=== PATIENT | male | born 1975 | race Native Hawaiian/Other Pacific Islander ===

== ENCOUNTER 2023-07-20 14:04 | Emergency (ER) | payer BC ==
[~2023-07-20] VITALS: Ht 175.3 cm; Wt 88.9 kg
== END 2023-07-20 16:56 | disposition home or self-care (01) ==
LOC: ED 14:04
DX: R42 Dizziness and giddiness (principal); M54.9 Dorsalgia, unspecified; M54.2 Cervicalgia
CPT/HCPCS: 99283; J1885; J2405